=== PATIENT | male | born 1985 | race Caucasian/White ===

== ENCOUNTER 2024-01-13 03:26 | Emergency (ER) | payer SELFPAY ==
[2024-01-13 03:38] VITALS: BP 144/82; PULSE 85; RESP 16; TEMP 36.9; O2SAT 99; BMI 22.1
--- NOTE | 2024-01-13 03:48 | ED.GENADULT ---
HPI - General Adult General Chief complaint: Dental/Oral Stated complaint: cyst on rt side jaw Time Seen by Provider: 01/13/24 03:45 Source: patient Mode of arrival: Ambulatory History of Present Illness HPI narrative: Patient is a 38-year-old male. Known issues with dental caries. His seeing a dentist in order to have implants. Was told that he had a cyst on his jaw that needed to be addressed before any implants could be done. Started to develop discomfort in his left upper teeth within the past 24 hours. No problems breathing. No problems swallowing. Related Data Previous Rx's Medication Instructions Recorded penicillin V potassium 500 mg 500 mg PO QID 7 days #28 tabs 01/13/24 tablet Allergies Allergy/AdvReac Type Severity Reaction Status Date / Time No Known Drug Allergies Allergy Verified 01/13/24 03:50 Review of Systems Constitutional Constitutional: Reports system reviewed and no additional complaints, except as documented ENT Ears, Nose, Mouth, and Throat: Reports system reviewed and no additional complaints, except as documented Integumentary/Breasts Skin/Breast: Reports system reviewed and no additional complaints, except as documented Patient History Social History Smoking Status: Current every day smoker Smoking Status: Current every day smoker tobacco type: cigarettes Substance Use Type: marijuana Exam Initial Vital Signs Initial Vital Signs: Vital Signs Temperature 98.4 F 01/13/24 03:38 Pulse Rate 85 01/13/24 03:38 Respiratory Rate 16 01/13/24 03:38 Blood Pressure 144/82 H 01/13/24 03:38 Pulse Oximetry 99 01/13/24 03:38 Oxygen Delivery Method Room Air 01/13/24 03:38 HENMT Mouth: lip normal and tongue normal Teeth and gingiva: poor dentition Neck Lymphatic: No lymphadenopathy Skin General: no rashes or lesions noted Neuro General: patient alert and patient awake Course Orders Ordered: Discontinued Medications Penicillin V Potassium (Penicillin Vk 250 Mg Tablet) 500 mg PO NOW ONE Stop: 01/13/24 03:49 Last Admin: 01/13/24 03:52 Dose: 500 mg Vital Signs Vital signs: Vital Signs - 8 hr 01/13/24 03:38 Temperature 98.4 F Pulse Rate 85 Respiratory Rate 16 Blood Pressure 144/82 H Pulse Oximetry 99 Oxygen Delivery Method Room Air Medical Decision Making MDM Narrative Medical decision making narrative: Patient does have poor dentition. His history and physical exam is consistent with a dental infection although there is no drainable abscess noted here in the ER. Will treat with antibiotics. First dose given here in the ER. Prescription was sent to pharmacy of his choice. Was instructed to follow-up with dentist for definitive treatment. Discharge Plan Departure Patient Disposition: Home Clinical Impression: Toothache Instructions: DI for Dental Pain Activity Restrictions/Additional Instructions: Taking antibiotics as directed. It is important that you follow-up with a dentist for definitive treatment. Return to the emergency department for new symptoms. Prescriptions: New penicillin V potassium 500 mg tablet 500 mg PO QID 7 Days Qty: 28 0RF Stand Alone Forms: Patient Portal/API
[2024-01-13] MEDS: PENICILLIN VK 250 MG TABLET 500 MG PO (03:52)
== END 2024-01-13 03:55 | disposition home or self-care (01) ==
PROVIDERS: Emergency Provider Emergency Medicine
DX: K08.89 Other specified disorders of teeth and supporting structures (principal)
CPT/HCPCS: 99283

== ENCOUNTER 2024-06-17 17:05 | Emergency (ER) | payer OTHER, SELFPAY ==
[2024-06-17 17:11] VITALS: BP 143/75; PULSE 98; RESP 16; TEMP 36.7; O2SAT 98; BMI 22.1
--- NOTE | 2024-06-17 17:12 | ED.DENTAL ---
HPI - Dental/Oral <Nel Alexis PA-C - Last Filed: 06/17/24 17:45> General Chief complaint: Dental/Oral Stated complaint: Tooth px Time Seen by Provider: 06/17/24 17:11 History of Present Illness HPI Narrative: 38-year-old male presents with concern for dental infection. Patient states that since last night he has had pain and increased swelling in his face on the left side on the lower at a site where a tooth broke off somewhat recently. He states he has had multiple dental infections in the past and used to use recreational substances that affected his teeth, he states he has been working on getting in to get dental implants done and has had some difficulty with this. He did have dental x-rays and was seen a few months ago but oral surgery was deferred. He denies any recent fevers or chills or any other symptoms or concerns. Related Data Previous Rx's Medication Instructions Recorded amoxicillin 875 mg-potassium 1 tab PO Q12H dental infection 10 06/17/24 clavulanate 125 mg tablet days #20 tabs Allergies Allergy/AdvReac Type Severity Reaction Status Date / Time No Known Drug Allergies Allergy Verified 01/13/24 03:50 Review of Systems <Nel Alexis PA-C - Last Filed: 06/17/24 17:45> Review of Systems Narrative: See HPI Patient History <Nel Alexis PA-C - Last Filed: 06/17/24 17:45> Social History Smoking Status: Current every day smoker Smoking Status: Current every day smoker tobacco type: cigarettes Substance Use Type: marijuana Exam <Nel Alexis PA-C - Last Filed: 06/17/24 17:45> Narrative Exam Narrative: GENERAL: [38] year old patient appears stated age. Well-developed patient, in mild distress. HEAD: Atraumatic. Normocephalic. EYES: Pupils equal round and reactive. Extraocular motions intact. No scleral icterus. No injection or drainage. ENT: Patient has missing teeth, majority of his molars are missing upper and lower he has teeth in the front upper and lower however most of these are broken or somewhat decayed appearing. There is visible mild swelling present on the left lower cheek/chin just outside the location of his pain and inflammation of the site of a broken tooth. Number 22 lower left. Nose without bleeding, purulent drainage. Throat without erythema, tonsillar hypertrophy or exudate. Airway patent. no lymphadenopathy noted. there is no erythema of the cheek, no significant swelling. Bilateral ears are normal in appearance In the ear canal,TMs are bilaterally scarred and cone of light visible. NECK: Trachea midline. Non tender CARDIOVASCULAR: Regular rate and rhythm without murmurs, gallops, or rubs. RESPIRATORY: Clear to auscultation. Breath sounds equal bilaterally. No wheezes, rales, or rhonchi. EXTREMITIES: No edema or joint tenderness. NEURO: AOx3. SKIN: No rash or erythema of visible areas Initial Vital Signs Initial Vital Signs: Vital Signs Temperature 98.0 F 06/17/24 17:11 Pulse Rate 98 H 06/17/24 17:11 Respiratory Rate 16 06/17/24 17:11 Blood Pressure 143/75 H 06/17/24 17:11 Pulse Oximetry 98 06/17/24 17:11 Oxygen Delivery Method Room Air 06/17/24 17:11 <Estefania Rodríguez DO - Last Filed: 06/19/24 11:31> Initial Vital Signs Initial Vital Signs: Vital Signs Temperature 98.0 F 06/17/24 17:11 Pulse Rate 98 H 06/17/24 17:11 Respiratory Rate 16 06/17/24 17:11 Blood Pressure 143/75 H 06/17/24 17:11 Pulse Oximetry 98 06/17/24 17:11 Oxygen Delivery Method Room Air 06/17/24 17:11 Course <Nel Alexis PA-C - Last Filed: 06/17/24 17:45> Orders Ordered: Discontinued Medications Amoxicillin/Clavulanate Potassium (Amoxicillin/Clav 875/125 Mg) 1 tab PO NOW ONE Stop: 06/17/24 17:26 Last Admin: 06/17/24 17:28 Dose: 1 tab Documented By: STACEY Vital Signs Vital signs: Vital Signs - 8 hr 06/17/24 17:11 06/17/24 17:38 Temperature 98.0 F Pulse Rate 98 H 96 H Respiratory Rate 16 19 Blood Pressure 143/75 H 141/74 H Pulse Oximetry 98 99 Oxygen Delivery Method Room Air Room Air <Estefania Rodríguez DO - Last Filed: 06/19/24 11:31> Orders Ordered: Discontinued Medications Amoxicillin/Clavulanate Potassium (Amoxicillin/Clav 875/125 Mg) 1 tab PO NOW ONE Stop: 06/17/24 17:26 Last Admin: 06/17/24 17:28 Dose: 1 tab Documented By: STACEY Vital Signs Vital signs: Vital Signs - 8 hr 06/17/24 17:11 06/17/24 17:38 Temperature 98.0 F Pulse Rate 98 H 96 H Respiratory Rate 16 19 Blood Pressure 143/75 H 141/74 H Pulse Oximetry 98 99 Oxygen Delivery Method Room Air Room Air MDM - Dental/Oral <Nel Alexis PA-C - Last Filed: 06/17/24 17:45> Differential Diagnosis Differential diagnosis: Likely gingival abscess, dental caries, toothache, dental abscess and fracture of tooth Medical Records Attestation: I reviewed the patient's medical records. MDM Narrative Medical decision making narrative: This is a 38-year-old male with chronic teeth problems and reported previous history of drug use who presents with concern for dental infection with pain and swelling since yesterday evening. Orajel has improved symptoms slightly but he is concern for infection. Exam today is consistent / concerning with this he does have someSwelling present adjacent to the affected tooth. The gum itself has no inflammation and there is no fluctuance suggestive of a drainable abscess. His vitals are within normal limits and no indication for sepsis or widespread infection. Discussed options with the patient encourage him to follow up with regular Dentistry in addition to working on getting in for dental implants. Initial dose of Augmentin provided today as his pharmacy will be closed by the time he returns home. Prescription for Augmentin for 10 day course. Recommended Orajel, Tylenol, ibuprofen for pain.Return precautions provided, follow-up plan discussed, all questions answered. Discharge Plan Departure Patient Disposition: Home Clinical Impression: Dental infection Activity Restrictions/Additional Instructions: *You have been diagnosed with [ Dental infection] *What to do: *Please continue to take your regular medications as directed. [ 1] New medication prescriptions sent to your pharmacy: [ Augmentin] [ ] New medication written as a paper prescription [ ] No new medications given *Please follow up with your primary care provider in 2-3 days, call for an appointment. Let them know you were seen in the Emergency Department and that we ask that you be seen in follow up. We will electronically transmit a record of today's note if your PCP is in our system. your exam today is consistent with a dental infection and need had increasing pain with some swellingSince yesterday. We gave you the 1st dose of oral antibiotic today in the emergency department as your pharmacy he will be closed by the time he returned home. Please take the antibiotics as prescribed for the entire course pick them up 1st thing in the morning. If you develop fevers chills worsening pain or swelling or symptoms concerning for worsening infection or have other concerns please make sure you seek re-evaluation. Otherwise continue with the antibiotics, try Tylenol ibuprofen and Orajel for pain. And follow up closely with dentistry. You may want to consider seeing [facility] in [place] or 1 of their other locations if you have not yet. I hope you feel better soon. *If you do not have a primary care provider please contact the [facility] Resource line at [phone]. They will ask some questions about your medical history and help get you set up with a doctor in the community. *Return to Emergency Department if you should have any new, worsening or concerning symptoms, such as [fever greater than 101 F, shaking chills, worsening pain, persistent vomiting or other bothersome symptoms] Prescriptions: New amoxicillin-pot clavulanate 875-125 mg tablet 1 tab PO Q12H 10 Days Qty: 20 0RF Referrals: Miscellaneous,Doctor, [Primary Care Provider] - Stand Alone Forms: Patient Portal/API ED Sign-out <Estefania Rodríguez DO - Last Filed: 06/19/24 11:31> Cosign ED Attending Yenifer Attestation: I was available for consultation.
[2024-06-17] MEDS: AMOXICILLIN/CLAV 875/125 MG 1 TAB PO (17:28)
[2024-06-17 17:38] VITALS: BP 141/74; PULSE 96; RESP 19; O2SAT 99
== END 2024-06-17 17:40 | disposition home or self-care (01) ==
PROVIDERS: Emergency Provider Student in an Organized Health Care Education/Training Program
DX: K04.7 Periapical abscess without sinus (principal)
CPT/HCPCS: 99283